=== PATIENT | female | born 1965 | race Caucasian/White ===

== ENCOUNTER → 2020-06-05 09:15 | Outpatient (BNVA) | payer MEDICAID, SELFPAY | PROVIDERS: Referring Provider Internal Medicine; Visit Provider Physician Assistant | DX: Z01.818 Encounter for other preprocedural examination (principal); Z87.19 Personal history of other diseases of the digestive system | CPT/HCPCS: 99203 ==

== ENCOUNTER 2020-07-25 08:11 | Outpatient (REF) | payer MEDICAID, SELFPAY | END 2020-07-25 08:12 | disposition home or self-care (01) | LOC: HO.LAB 08:11 | PROVIDERS: Visit Provider Obstetrics & Gynecology | DX: N95.0 Postmenopausal bleeding (principal) | CPT/HCPCS: 58100; 88305 ==

== ENCOUNTER 2020-07-30 08:01 | Day surgery (SDC) | payer MEDICAID, SELFPAY ==
[2020-07-24 21:07] VITALS: BMI 37.1
--- NOTE | 2020-07-27 09:10 | P.CONAN_ITS ---
Documented by User: Poornima Tsai 07/27/20 09:11 HPI - Anesthesia Eval Consult details Narrative: 55yo F for Colonoscopy [facility] Past Medical History Medical History Arthritis Asthma Colon polyp Depression Hypothyroid Family History Family History Father Pulmonary emphysema Brother Brain tumor Mother Asthma Diabetes Dementia Surgical History Surgical History Hx of carpal tunnel repair Hx of colonoscopy Social History Social History Alcohol intake: current Alcohol intake frequency: does not drink Smoking Status: Never smoker Use of substances other than those prescribed or required for medical reasons: No Advance Directives: No Advance Directives Information Provided: No Advance Directives on File: No Sexual orientation: Straight/Heterosexual Gender identity: female Meds Allergies Allergy/AdvReac Type Severity Reaction Status Date / Time No Known Allergies Allergy Verified 07/25/20 08:42 Home Medications Medication Instructions Recorded Confirmed Type budesonide-formoterol HFA 80 2 puff INHALATION BID 06/05/20 07/24/20 History mcg-4.5 mcg/actuation aerosol inhaler levothyroxine 125 mcg tablet 125 mcg PO DAILY 06/05/20 07/24/20 History albuterol 90 mcg INHALATION Q4-6H PRN 07/24/20 07/24/20 History Exam Exam Date and Time: July 27, 2020 0910 Height,Weight and Vital Signs: Height 5 ft 6 in Weight 104.326 kg Assessment and Plan Assessment Anesthesia Assessment: Chart Reviewed Documented by User: Soniya Angel 07/30/20 09:12 [facility] Past Medical History Medical History Arthritis Asthma Colon polyp Depression Hypothyroid Family History Family History Father Pulmonary emphysema Brother Brain tumor Mother Asthma Diabetes Dementia Family history of problems with anesthesia: No Surgical History Surgical History Hx of carpal tunnel repair Hx of colonoscopy History of Problems with Anesthesia: No Social History Social History Alcohol intake: current Alcohol intake frequency: does not drink Smoking Status: Never smoker Use of substances other than those prescribed or required for medical reasons: No Advance Directives: No Advance Directives Information Provided: No Advance Directives on File: No Sexual orientation: Straight/Heterosexual Gender identity: female Meds Allergies Allergy/AdvReac Type Severity Reaction Status Date / Time No Known Allergies Allergy Verified 07/25/20 08:42 Home Medications Medication Instructions Recorded Confirmed Type budesonide-formoterol HFA 80 2 puff INHALATION BID 06/05/20 07/24/20 History mcg-4.5 mcg/actuation aerosol inhaler levothyroxine 125 mcg tablet 125 mcg PO DAILY 06/05/20 07/24/20 History albuterol 90 mcg INHALATION Q4-6H PRN 07/24/20 07/24/20 History Exam Airway Mallampati Class: III TM Dist: >3cm Neck ROM: Full Denture: Upper Heart: RRR Lungs: CTAB Assessment and Plan Assessment Anesthesia Assessment: Anesthesia Plan Discussed and Chart Reviewed Final Anesthetic Review NPO: Yes ASA Class: II Final Preanesthetic Review: No Changes in Pt Med Stat, Meds/Allgs Chart Reviewed, Consent Obtained/Reviewed and Anes Risks/Benef Reviewed Patient Risk: Low Procedure Risk: Low Anesthetic Plan Anesthetic Plan: MAC: Disposition: Standard PACU
[2020-07-30 08:46] VITALS: BP 134/68; PULSE 62; RESP 18; TEMP 36.1; O2SAT 95
--- NOTE | 2020-07-30 09:22 | W.PM.OPN ---
Operative Note Operative Note Date of Service: 07/30/20 Narrative: Pre-op diagnosis: Colon cancer screening, hx of colon polyps Post-op diagnosis: other (Colon polyp, diverticulosis, hemorrhoids) Procedure: COLONOSCOPY TO CECUM WITH BIOPSY AND SNARE POLYPECTOMY Consent: Indications for the procedure and potential complications of bleeding, perforation, reaction to medications and missed diagnosis were discussed with the patient and informed consent was obtained. Instrument: Olympus PCF H 190 L variable stiffness pediatric colonoscope Monitoring: Vital signs and clinical assessment, intermittent blood pressure monitoring, continuous EKG monitoring, Pulse oximetry and Carbon Dioxide monitoring were done throughout the procedure. Colon withdrawl time was 24 minutes. Procedure: The patient was placed in the left lateral decubitis position and pre-procedure medications were administered. After a digital rectal examination of the ano-rectum, the video colonoscope was inserted into the rectum and advanced through the colon to the cecum. The colonoscope was slowly withdrawn in a retrograde panoramic fashion and the colon mucosa was carefully examined including a retroflexed view of the rectum. Findings and interventions are described below. Procedure Difficulty: Without difficulty Findings: Terminal Ileum: Not evaluated Cecum: Normal Ascending Colon: Normal Transverse Colon: A 10 - 12 mm sessile polyp removed by a host snare. A 2nd 3-4 mm sessile polyp removed with a cold bx. Descending Colon: Moderate diverticulosis Sigmoid Colon: Moderate to severe diverticulosis Rectum: Normal Ano-rectum: Moderate internal hemorrhoids Colon preparation: Good Impression and Post Procedure Diagnosis: Colonoscopy Findings: Two polyps removed (one was 10-12 mm in size) Moderate diverticulosis seen in the left colon Moderate hemorrhoids on retroflexed exam. Plan: Await pathology results Patient has an appointment on 08/13/20 in the [facility] with GIANLUCA Bueno . Repeat Colonoscopy interval based on path results - in 3 years if polyps are adenomatous and 5 years if polyps are hyperplastic (due to history of colon polyps). Above findings were reviewed with the patient and colon polyps and diverticulosis handouts were given in the discharge area Surgeon: Anaid Moreno MD Anesthesia: MAC (ASSISTANT HAIRSTYLIST Darian) Estimated blood loss (mL): 0 Pathology: other (A. TC polyps x 2) Condition: stable Disposition: PACU
--- NOTE | 2020-07-30 09:22 | MHC.SHP ---
Pre-Procedural Eval Section A The patient is an INPATIENT: No The History & Physical has been completed within 30 days and I have reviewed it.: No Section B Chief Complaint: Screening Details of Present Illness: A 55-year-old female with history of colon polyps with as referred for colonoscopy-- last colonoscopy at age 49 in [place]- she had polyps removed- recommended 5 year repeat colonoscopy. no known family history of colon cancer. she has a normal bowel pattern. She has a good appetite. She uses daily inhaler she has not had any issues with asthma she has not been hospitalized in the past year. She has no nausea, vomiting, abdominal pain, rectal bleeding, fever or chills She has recently tested positive for covid- however she is mostly asymptomatic, doing very well Relevant Family History (Specify if Yes): No Relevant Social History: None Present Medications: see Short Stay Collaborative assessment Medical History: Significant History (asthma, hx of colon polyps) History of Previous Operations: Relevant previous surgery/procedure and date(s) (Colonoscopy) Allergies: Allergies Allergy/AdvReac Type Severity Reaction Status Date / Time No Known Allergies Allergy Verified 07/25/20 08:42 Review of Systems Sugical H&P ROS: Negative: Constitution, Cardiovascular and Gastrointestinal and Yes, Specify: Respiratory (cough due to asthma) Exam Surgical H&P Exam: Normal: Heart, Normal: Lungs, Normal: Extremities and Normal: Abdomen Plan Diagnosis/Plan: Unchanged Patient has been examined and remains a candidate for the planned procedure
[2020-07-30] MEDS: Lactated Ringers 1,000 ML 100 ML IVCONT (09:28)
[2020-07-30 10:20] VITALS: BP 104/48; PULSE 84; RESP 20; TEMP 36.7; O2SAT 95
[2020-07-30 10:35] VITALS: BP 109/42; PULSE 79; RESP 17; TEMP 36.7; O2SAT 98
[2020-07-30 11:04] VITALS: O2SAT 98
--- NOTE | 2020-07-30 11:53 | HO.POSTANES ---
Post Anesthesia Evaluation Post Anesthesia Evaluation Vital Signs: Vital Signs Temp Pulse Resp BP Pulse Ox 07/30/20 11:04 98 07/30/20 10:35 98.1 F 79 17 109/42 L 98 07/30/20 10:20 98.1 F 84 20 104/48 L 95 07/30/20 08:46 97.0 F 62 18 134/68 95 Anesthesia: Monitored Mental Status: Awake (Some dizziness secondary to standing up too fastin bathroom. Also c/o some SOB - would like to use inhaler. No CP.Ekg wnl. Lungs CTAB. No wheezes.) Pain Control: Satisfactory Nausea/Vomiting: None Hydration: Adequate Anesthesia-Related Issues: No Anes. Related Issues (Patient observed in Pacu post using inhaler. Feels ok. SOB resolved. OK to discharge.)
== END 2020-07-30 11:59 | disposition home or self-care (01) ==
PROVIDERS: Visit Provider Internal Medicine Gastroenterology
PROC: 0DJD8ZZ Inspection of Lower Intestinal Tract, Via Natural or Artificial Opening Endoscopic (ICD-10-PCS; CPT 45378; principal; 2020-07-30 09:30)
DX: Z12.11 Encounter for screening for malignant neoplasm of colon (principal); D12.3 Benign neoplasm of transverse colon; K57.30 Diverticulosis of large intestine without perforation or abscess without bleeding; K64.8 Other hemorrhoids; Z86.010 Personal history of colon polyps
CPT/HCPCS: 45385; 45380; 88305; J3010

== ENCOUNTER → 2020-08-06 12:06 | Outpatient (BNVA) | payer MEDICAID, SELFPAY | PROVIDERS: Visit Provider Obstetrics & Gynecology | DX: Z76.89 Persons encountering health services in other specified circumstances (principal) ==

== ENCOUNTER 2020-08-13 10:58 | Outpatient (REF) | payer MEDICAID, SELFPAY ==
--- NOTE | 2020-08-13 | US_ITS ---
EXAMINATION: US PELVIS COMPLETE CLINICAL INFORMATION: Postmenopausal bleeding, myoma COMPARISON: None TECHNIQUE: Transabdominal and transvaginal imaging of pelvis is performed. FINDINGS: On transabdominal ultrasound the uterus is anteverted, anteflexed and heterogenous measuring 9.1 cm in length, 4.1 cm in AP and 5.1 cm in transverse dimension. Endometrial thickness is 0.2 cm. There is a hypoechoic lesion in the posterior fundus measuring 1.3 x 0.6 x 1.0 cm. Previously it measured 0.8 x 0.7 x 0.9 cm. Right ovary measures 2.2 x 1.5 x 1.6 cm and volume 2.8 mL. Appears unremarkable. Previously right ovary measures 2.5 x 1.7 x 1.4 cm. Left ovary is not visualized. There is no free fluid in the cul-de-sac. US/US transvaginal IMPRESSION: Heterogeneous uterus with solitary fibroid in the right posterior fundus. The right ovary is unremarkable. The left ovary is not seen.
--- NOTE | 2020-08-13 | US_ITS ---
EXAMINATION: US PELVIS COMPLETE CLINICAL INFORMATION: Postmenopausal bleeding, myoma COMPARISON: None TECHNIQUE: Transabdominal and transvaginal imaging of pelvis is performed. FINDINGS: On transabdominal ultrasound the uterus is anteverted, anteflexed and heterogenous measuring 9.1 cm in length, 4.1 cm in AP and 5.1 cm in transverse dimension. Endometrial thickness is 0.2 cm. There is a hypoechoic lesion in the posterior fundus measuring 1.3 x 0.6 x 1.0 cm. Previously it measured 0.8 x 0.7 x 0.9 cm. Right ovary measures 2.2 x 1.5 x 1.6 cm and volume 2.8 mL. Appears unremarkable. Previously right ovary measures 2.5 x 1.7 x 1.4 cm. Left ovary is not visualized. There is no free fluid in the cul-de-sac. US/US pelvic complete IMPRESSION: Heterogeneous uterus with solitary fibroid in the right posterior fundus. The right ovary is unremarkable. The left ovary is not seen.
== END 2020-08-13 10:59 | disposition home or self-care (01) ==
LOC: HO.US 10:58
PROVIDERS: Visit Provider Obstetrics & Gynecology
DX: N95.0 Postmenopausal bleeding (principal); D21.9 Benign neoplasm of connective and other soft tissue, unspecified
CPT/HCPCS: 76830; 76856

== ENCOUNTER → 2020-08-27 11:20 | Outpatient (BNVA) | payer MEDICAID, SELFPAY | PROVIDERS: PCP Internal Medicine; Visit Provider Obstetrics & Gynecology | DX: Z76.89 Persons encountering health services in other specified circumstances (principal) ==

== ENCOUNTER → 2020-09-21 10:13 | Outpatient (BNVA) | payer MEDICAID, SELFPAY | PROVIDERS: PCP Internal Medicine; Visit Provider Obstetrics & Gynecology | DX: N95.0 Postmenopausal bleeding (principal); D25.9 Leiomyoma of uterus, unspecified | CPT/HCPCS: 99212 ==

== ENCOUNTER 2020-09-27 10:15 | Day surgery (SDC) | payer MEDICAID, SELFPAY ==
--- NOTE | 2020-09-26 12:31 | HO.ANESPROP2 ---
Documented by User: Poornima Shinney 09/26/20 12:32 HPI - Anesthesia Eval Consult details Narrative: 55yo F for D&C Diagnostic Hysteroscopy PMF[facility] Active Problems Active Problems: All Active Problems (Updated 08/27/20 @ 12:21 by Vincent Ferrer MD) Myoma (Acute) Diverticulosis (Acute) Postmenopausal bleeding (Acute) Colon cancer screening declined (Acute) Asthma (Acute) Past Medical History Medical History Arthritis Asthma Colon polyp Depression Hypothyroid Family History Family History Father Pulmonary emphysema Brother Brain tumor Mother Asthma Diabetes Dementia Surgical History Surgical History Hx of carpal tunnel repair Hx of colonoscopy Social History Social History Alcohol intake: current Alcohol intake frequency: does not drink Smoking Status: Never smoker Use of substances other than those prescribed or required for medical reasons: No Have you been hit, kicked, punched, or otherwise hurt by someone within the past year? If so, by whom?: No Advance Directives: No Advance Directives Information Provided: Yes Sexual orientation: Straight/Heterosexual Gender identity: female Meds Allergies Allergy/AdvReac Type Severity Reaction Status Date / Time No Known Allergies Allergy Verified 09/21/20 11:01 Home Medications Medication Instructions Recorded Confirmed Last Taken Type budesonide-formoterol HFA 80 2 puff INHALATION BID 06/05/20 09/21/20 07/30/20 06:00 History mcg-4.5 mcg/actuation aerosol inhaler levothyroxine 125 mcg tablet 125 mcg PO DAILY 06/05/20 09/21/20 07/30/20 06:00 History albuterol 90 mcg INHALATION Q4-6H PRN 07/24/20 09/21/20 07/30/20 06:00 History metformin 500 mg tablet 500 mg PO DAILY 08/27/20 09/21/20 Unknown History atorvastatin 20 mg tablet 20 mg PO DAILY 09/21/20 09/21/20 Unknown History budesonide-formoterol HFA 160 2 puff INHALATION BID 09/21/20 09/21/20 Unknown History mcg-4.5 mcg/actuation aerosol inhaler cetirizine 10 mg capsule 10 mg PO DAILY PRN 09/21/20 09/21/20 Unknown History fluticasone propionate 50 1 spray INTRANASAL DAILY 09/21/20 09/21/20 Unknown History mcg/actuation nasal spray,suspension sertraline 100 mg tablet 100 mg PO DAILY 09/21/20 09/21/20 Unknown History trazodone 100 mg tablet 100 mg PO DAILY 09/21/20 09/21/20 Unknown History Exam Exam Date and Time: September 26, 2020 1231 Assessment and Plan Assessment Anesthesia Assessment: Chart Reviewed Documented by User: Danuta Cano 09/27/20 12:47 PMF[facility] Past Medical History Medical History Arthritis Asthma Colon polyp Depression Hypothyroid Family History Family History Father Pulmonary emphysema Brother Brain tumor Mother Asthma Diabetes Dementia Surgical History Surgical History Hx of carpal tunnel repair Hx of colonoscopy Social History Social History Alcohol intake: current Alcohol intake frequency: does not drink Smoking Status: Never smoker Use of substances other than those prescribed or required for medical reasons: No Have you been hit, kicked, punched, or otherwise hurt by someone within the past year? If so, by whom?: No Advance Directives: No Advance Directives Information Provided: Yes Sexual orientation: Straight/Heterosexual Gender identity: female Meds Allergies Allergy/AdvReac Type Severity Reaction Status Date / Time No Known Allergies Allergy Verified 09/21/20 11:01 Home Medications Medication Instructions Recorded Confirmed Last Taken Type budesonide-formoterol HFA 80 2 puff INHALATION BID 06/05/20 09/21/20 07/30/20 06:00 History mcg-4.5 mcg/actuation aerosol inhaler levothyroxine 125 mcg tablet 125 mcg PO DAILY 06/05/20 09/21/20 07/30/20 06:00 History albuterol 90 mcg INHALATION Q4-6H PRN 07/24/20 09/21/20 07/30/20 06:00 History metformin 500 mg tablet 500 mg PO DAILY 08/27/20 09/21/20 Unknown History atorvastatin 20 mg tablet 20 mg PO DAILY 09/21/20 09/21/20 Unknown History budesonide-formoterol HFA 160 2 puff INHALATION BID 09/21/20 09/21/20 Unknown History mcg-4.5 mcg/actuation aerosol inhaler cetirizine 10 mg capsule 10 mg PO DAILY PRN 09/21/20 09/21/20 Unknown History fluticasone propionate 50 1 spray INTRANASAL DAILY 09/21/20 09/21/20 Unknown History mcg/actuation nasal spray,suspension sertraline 100 mg tablet 100 mg PO DAILY 09/21/20 09/21/20 Unknown History trazodone 100 mg tablet 100 mg PO DAILY 09/21/20 09/21/20 Unknown History Exam Airway Mallampati Class: II TM Dist: >3cm Neck ROM: Full Assessment and Plan Assessment Anesthesia Assessment: Anesthesia Plan Discussed and Chart Reviewed Final Anesthetic Review NPO: Yes ASA Class: II Final Preanesthetic Review: No Changes in Pt Med Stat, Meds/Allgs Chart Reviewed, Consent Obtained/Reviewed and Anes Risks/Benef Reviewed Patient Risk: Low Procedure Risk: Low Assessment/Block/Sedation in SS: Assess/Block/Sedation-SS Anesthetic Plan Disposition: Standard PACU
[2020-09-27] VITALS (7 sets, daily range): BP systolic 107–124; BP diastolic 52–64; PULSE 61–65; RESP 16–20; TEMP 36.1–36.6; O2SAT 95–100; BMI 37.1
--- NOTE | 2020-09-27 11:17 | MHC.SHP ---
Pre-Procedural Eval Section A The patient is an INPATIENT: No Changes since office visit: No Cold of Flu in the past 2 weeks, No New Medical Problems, No Changes in Medication and No Patient answered all questions The History & Physical has been completed within 30 days and I have reviewed it.: Yes Section B Chief Complaint: bleeding Allergies: Allergies Allergy/AdvReac Type Severity Reaction Status Date / Time No Known Allergies Allergy Verified 09/21/20 11:01 Plan Diagnosis/Plan: Unchanged I have reviewed the history and physical and performed a pertinent physical examination on my patient. No changes have occurred unless specified.
[2020-09-27 11:35] LABS: Glucose, Whole Blood 109 mg/dL (60-115)
[2020-09-27] MEDS: Lactated Ringers 1,000 ML 20 ML IVCONT (11:53)
--- NOTE | 2020-09-27 13:23 | PM.OP ---
Brief Operative Note Date of Service: 09/27/20 Pre-op diagnosis: Postmenopausal bleeding Post-op diagnosis: same Procedure: Hysteroscopy D&C Surgeon: Vincent Ferrer MD Anesthesia: MAC Estimated blood loss (mL): 0 Pathology: other (Endometrial Scrapping. Polyp) Condition: stable Disposition: PACU
--- NOTE | 2020-09-27 13:23 | W.PM.OPN ---
Operative Note Operative Note Date of Service: 09/27/20 Narrative: Preop Diagnosis: Postmenopausal bleeding Operation: Diagnostic Hysteroscopy, Dilataion & Curettage Post Op Diagnosis: normal endometrial and endocervical cavity no evidence of pathology QBL: Minimal Anesthesia: MAC Surgeon: Vincent Ferrer MD Chief Digital Media Officer: None Complication: None Pathology: Endometrial Scrapings Procedure: The patient was put in the dorsal lithotomy position, scrubbed, and draped in the usual manner. A sterile speculum was inserted in the patient's vagina. The anterior lip of the cervix was grasped with a single tooth tenaculum. The cervix was dilated up t o 5 mm, then the scope was inserted in the patient's uterus. Inspection revealed normal endocervical & endometrial cavity with no evidence of pathology. The scope was taken out of the uterine cavity , then sharp curetting was carried on with no complications. At the end of the procedure, all instruments were taken out of the patient uterine and vaginal cavity. The single tooth tenaculum was removed and homeostasis was assured using pressure. The patient tolerated the procedure well and was transferred to the PACU in a stable condition.
[2020-09-27] MEDS: oxyCODONE HCl Immed Release 5 MG TABLET PO (14:00)
[2020-09-27] MEDS: Acetaminophen 325 MG TABLET 650 MG PO (14:06)
--- NOTE | 2020-09-27 17:44 | HO.POSTANES ---
Post Anesthesia Evaluation Post Anesthesia Evaluation Vital Signs: Vital Signs Temp Pulse Resp BP Pulse Ox 09/27/20 14:26 97.6 F 61 16 118/62 97 09/27/20 14:02 61 16 116/60 97 09/27/20 13:47 64 16 110/52 L 97 09/27/20 13:42 65 16 107/58 L 95 09/27/20 13:37 64 16 117/57 L 95 09/27/20 13:32 97.8 F 63 18 124/64 100 09/27/20 11:07 97.0 F 62 20 121/63 97 Anesthesia: General LMA Mental Status: Awake Pain Control: Satisfactory Nausea/Vomiting: None Hydration: Adequate Anesthesia-Related Issues: No Anes. Related Issues
== END 2020-09-27 15:37 | disposition home or self-care (01) ==
PROVIDERS: Visit Provider Obstetrics & Gynecology
PROC: 0UDB8ZX Extraction of Endometrium, Via Natural or Artificial Opening Endoscopic, Diagnostic (ICD-10-PCS; CPT 58558; principal; 2020-09-27 12:20)
DX: N95.0 Postmenopausal bleeding (principal); J45.909 Unspecified asthma, uncomplicated
CPT/HCPCS: 58558; 82947; 88305; J2405; J3010

== ENCOUNTER → 2020-10-11 11:52 | Outpatient (BNVA) | payer MEDICAID, SELFPAY | PROVIDERS: Visit Provider Obstetrics & Gynecology ==

== ENCOUNTER → 2020-10-17 10:21 | Outpatient (BNVA) | payer MEDICAID, SELFPAY | PROVIDERS: PCP Internal Medicine; Visit Provider Advanced Practice Midwife ==

== ENCOUNTER 2020-10-22 08:26 | Outpatient (REF) | payer MEDICAID, SELFPAY ==
--- NOTE | ~2020-10-22 | US_ITS ---
EXAMINATION: US THYROID CLINICAL INFORMATION: Hyperthyroidism. COMPARISON: None. TECHNIQUE: Linear transducer grayscale and color Doppler examination with attention to the region of the thyroid. FINDINGS: SIZE: Measurements of the thyroid lobes and nodules are given in sagittal, anteroposterior and transverse dimensions respectively. Right Thyroid Lobe: 4.9 x 1.4 x 1.2 cm, volume 4.1 mL. Previously measured 4.7 x 1.6 x 1.5 cm and volume 6.0 mL. Parenchyma: The gland echotexture is heterogenous. Thyroid vascularity is normal. Left Thyroid Lobe: 2.9 x 1.2 x 1.2 cm, volume 1.9 mL. Previously measured 4.3 x 1.7 x 1.7 cm and volume 6.3 mL. Parenchyma: The gland echotexture is heterogeneous. Thyroid vascularity is normal. Isthmus: 0.6 cm in maximum AP dimension. Previously measured 0.4 cm. Estimated total number of nodules greater than or equal to 1 cm: None. Director Of Land nodules are described as follows: There are no nodules seen at this time.] NODES: No lymphadenopathy is seen in the tissue surrounding the thyroid gland. US/US thyroid IMPRESSION: Heterogenous thyroid gland with normal vascularity. No thyroid nodule seen at this time. ACR TI-RADS RECOMMENDATION REFERENCE: Ultrasound-guided fine-needle aspiration, followup ultrasound, no further follow up. * TR1 (0 point) and TR 2 (2 points): No FNA or follow up * TR3 (3 points): FNA if more than or equal to 2.5 cm in maximum dimension, followup ultrasound in 1, 3 and 5 years if 1.5 to 2.4 cm in maximum dimension. * TR4 (4-6 points): FNA if more than or equal to 1.5 cm in maximum dimension, followup ultrasound in 1, 2, 3 and 5 years if 1 to 1.4 cm in maximum dimension. * TR5 (more than or equal to 7 points): FNA if more than or equal to 1 cm in maximum dimension, followup ultrasound every year for 5 years if 0.5 to 0.9 cm in maximum dimension. * TR3, TR4 or TR5 nodules that are below the size threshold for follow up receive no follow up.
== END 2020-10-22 08:27 | disposition home or self-care (01) ==
LOC: HO.US 08:26
PROVIDERS: PCP Internal Medicine; Visit Provider Internal Medicine
DX: E03.9 Hypothyroidism, unspecified (principal)
CPT/HCPCS: 76536